=== PATIENT | male | born 1980 | race Caucasian/White ===

== ENCOUNTER 2017-01-31 13:26 | Emergency (ER) | payer BC, OTHER ==
--- NOTE | 2017-01-31 15:21 | ER Document Report ---
HPI - HPI Patient complains to provider of: injured right wrist falling backwards last night Onset: Yesterday Onset/Duration: Sudden Quality of pain: Throbbing Pain Level: 3 Context: 36 yo male vacationing here from [place] fell backwards with arms out to break the fall and injured right ulnar wrist, worse with movement. Wants to surf. Associated Symptoms: None Exacerbated by: Movement Relieved by: Denies - ROS ROS below otherwise negative: Yes Systems Reviewed and Negative: Yes All other systems reviewed and negative - DERM Skin Color: Normal, Cyanotic Past Medical History - General Information source: Patient - Social History Smoking Status: Never Smoker Frequency of alcohol use: None Drug Abuse: None Lives with: Family Family History: None Patient has suicidal ideation: No Patient has homicidal ideation: No - Medical History Medical History: Negative Renal/ Medical History: Denies: Hx Peritoneal Dialysis Surgical Hx: Negative Vertical Provider Document - CONSTITUTIONAL Agree With Documented VS: Yes Exam Limitations: No Limitations General Appearance: No Apparent Distress - INFECTION CONTROL TRAVEL OUTSIDE OF THE [place] IN LAST 30 DAYS: No - HEENT HEENT: Normocephalic - NECK Neck: Supple - RESPIRATORY O2 Sat by Pulse Oximetry: 97 - MUSCULOSKELETAL/EXTREMETIES Musculoskeletal/Extremeties: MAEW, FROM, Tender - just above the ulnar styloid tendon - NEURO Level of Consciousness: Awake, Alert, Appropriate Motor/Sensory: No Motor Deficit, No Sensory Deficit - DERM Integumentary: Warm, Dry Course - Vital Signs Vital signs: Temp Pulse Resp BP Pulse Ox 98.6 F 73 18 169/113 H 97 01/31/17 13:37 01/31/17 13:37 01/31/17 13:37 01/31/17 13:37 01/31/17 13:37 Procedures - Immobilization Left Wrist Time completed: 15:40 Pre-Proc Neuro Vasc Exam: Normal Immobilizer type: Cock-up Performed by: PCT Post-Proc Neuro Vasc Exam: Normal Alignment checked and good: Yes Discharge - Discharge Clinical Impression: Elevated blood pressure reading, right wirst sprain Condition: Good Disposition: HOME, SELF-CARE Instructions: Wrist Sprain ([facility]), Temporary Splint ([facility]), Splint Precautions ( [facility]), Acetaminophen, Anti-Inflammatory Medication ([facility]), Elevate the Injury ([facility] ), High Blood Pressure ([facility]) Additional Instructions: splint for comfort See your doctor when he got home to [place] about your high blood pressure reading here to er any concerns Please complete the patient satisfaction survey if you get one, and return it.. If you do not receive a survey, then you can go to the [facility] website, [email or web address] and place your comments about your very good care. Thank you very much. It was a pleasure being your medical provider today. Prescriptions: Ibuprofen [Motrin 800 mg Tablet] 800 mg PO Q8HP PRN #30 tablet PRN Reason:
[2017-01-31 15:36] VITALS: BP 150/105
== END 2017-01-31 15:41 | disposition home or self-care (01) ==
LOC: ER 13:26
PROC: 2W3DX1Z Immobilization of Left Lower Arm using Splint (ICD-10-PCS; principal; 2017-01-31)
DX: S63.501A Unspecified sprain of right wrist, initial encounter (principal); W19.XXXA Unspecified fall, initial encounter; R03.0 Elevated blood-pressure reading, without diagnosis of hypertension
CPT/HCPCS: 99283; 73110; L3984